=== PATIENT | male | born 1990 | race Caucasian/White ===

== ENCOUNTER 2019-08-28 15:57 | Emergency (ER) | payer OTHER ==
[2019-08-28 16:15] VITALS: BP 145/99; PULSE 98; TEMP 98.5; BMI 33.0
--- NOTE | 2019-08-28 16:16 | PDOC ---
Rapid Medical Evaluation Medical Evaluation: Allergies Allergy/AdvReac Type Severity Reaction Status Date / Time No Known Allergies Allergy Verified 10/10/13 15:03 08/28/19 16:08 28 yo M works at [employer], [employer] c/o dog bite to L index finger sustained at work today. unknown if pet is vaccinated. patient was here for cat bite to R index finger 2 months ago. received immunoglobulin and first vaccine. did not complete vaccine because [facility] informed patient that it's not necessary given cat did not have rabies. patient cleaned area with chlorahexadine, applied triple antibiotic ointment. denies any other injuries. VSS dressing noted over L index finger A/P: Dog bite to L index finger to ed for further eval
--- NOTE | 2019-08-28 16:38 | PDOC ---
History of Present Illness - General Chief Complaint: Bite Stated Complaint: DOG BITE Time Seen by Provider: 08/28/19 16:24 History Source: Patient Exam Limitations: Clinical Condition - History of Present Illness Initial Comments: 08/28/19 16:43 Patient with no significant past medical history present with complaint of bite wound to distal aspect of left index finger from a Molly dog working as a [employer] dog retirement. Patient reported dog is up-to-date on all vaccines. Patient reported on the procedure needed dog and the dog accidentally biting the left index finger. Patient was seen 2 months ago for cat bite and received for series of rabies vaccine. Last tetanus vaccine was 2013. Denies any other symptoms. Denies bleeding from wound site, numbness or tingling sensation of fevers. Patient rapped finger with stretch gauze after incident. Timing/Duration: reports: just prior to arrival Past History - Medical History Allergies/Adverse Reactions: Allergies Allergy/AdvReac Type Severity Reaction Status Date / Time No Known Allergies Allergy Verified 08/28/19 16:15 Home Medications: Ambulatory Orders Amoxicillin/Potassium Clav [Augmentin 875-125 Tablet] 1 each PO BID #14 tablet 08/28/19 COPD: No - Immunization History Immunization Up to Date: Yes - Psycho-Social/Smoking History Smoking History: Never smoked Have you smoked in the past 12 months: No Review of Systems - Review of Systems Able to Perform ROS?: Yes Is the patient limited Moroccan proficient: No Constitutional: No: Chills, Fever, Malaise HEENTM: No: Symptoms Reported, See HPI, Eye Pain, Blurred Vision, Tearing, Recent change in vision, Double Vision, Cataracts, Ear Pain, Ocular Prothesis, Ear Discharge, Nose Pain, Nose Congestion, Tinnitus, Nose Bleeding, Hearing Loss, Throat Pain, Throat Swelling, Mouth Pain, Dental Problems, Difficulty Swallowing, Mouth Swelling, Other Respiratory: No: Symptoms reported Cardiac (ROS): No: Symptoms Reported Musculoskeletal: Yes: Symptoms Reported, See HPI, Muscle Pain (puncture wound to left index finger) Integumentary: Yes: Symptoms Reported, See HPI, Other (dog bite to left index finger). No: Erythema All Other Systems: Reviewed and Negative *Physical Exam - Vital Signs Last Vital Signs Temp Pulse Resp BP Pulse Ox 98.5 F 98 H 18 145/99 98 08/28/19 16:07 08/28/19 16:07 08/28/19 16:07 08/28/19 16:07 08/28/19 16:07 - Physical Exam General Appearance: Yes: Nourished, Appropriately Dressed. No: Apparent Distress HEENT: positive: Normal ENT Inspection Respiratory/Chest: negative: Respiratory Distress, Accessory Muscle Use Musculoskeletal: positive: Normal Inspection Extremity: positive: Normal Capillary Refill, Normal Inspection, Normal Range of Motion. negative: Erythema Integumentary: positive: Normal Color, Other (Barely visible tiny puncture wound to plantar aspect of distal phalange of left index finger). negative: Erythema Neurologic: positive: Fully Oriented, Alert, Normal Mood/Affect, Normal Response, Motor Strength 5/5 Medical Decision Making - Medical Decision Making 08/28/19 16:45 Patient with no significant past medical history present with complaint of bite wound to distal aspect of left index finger from a Molly dog working as a [employer] dog retirement. Patient reported dog is up-to-date on all vaccines. Patient reported on the procedure needed dog and the dog accidentally biting the left index finger. Patient was seen 2 months ago for cat bite and received for series of rabies vaccine. Last tetanus vaccine was 2013. Denies any other symp toms. Denies bleeding from wound site, numbness or tingling sensation of fevers. Patient rapped finger with stretch gauze after incident. Exam significant for barely visible tiny puncture wound to plantar aspect of distal phalange of left index finger with no bleeding. Normal strength to left index finger. No skin erythema. Assess as patient up-to-date on vaccine and dog is fully vaccinated. Will discharge patient home on Augmentin antibiotic for infection prophylaxis with strict follow-up instructions. Patient understands follow-up instructions and stable for discharge Discharge - Discharge Information Problems reviewed: Yes Clinical Impression/Diagnosis: Dog bite Puncture wound of finger of left hand Qualifiers: Encounter type: initial encounter Qualified Code(s): S61.239A - Puncture wound without foreign body of unspecified finger without damage to nail, initial encounter Condition: Stable Disposition: HOME - Admission No - Additional Discharge Information Prescriptions: Amoxicillin/Potassium Clav [Augmentin 875-125 Tablet] 1 each PO BID #14 tablet - Follow up/Referral - Patient Discharge Instructions Patient Printed Discharge Instructions: DI for Animal Bites Additional Instructions: Take prescribed antibiotics and finish it. Apply bacitracin to wound twice a day as needed until healed. Follow-up with PCP or come back to emergency room if worsening swelling or redness to bite site, fevers otherwise follow-up as needed - Post Discharge Activity
== END 2019-08-28 16:42 | disposition home or self-care (01) ==
LOC: JERFT 15:57
DX: S61.232A Puncture wound without foreign body of right middle finger without damage to nail, initial encounter (principal)
CPT/HCPCS: 99282-25